=== PATIENT | male | born 1945 | race Two or more races ===

== ENCOUNTER 2017-10-26 08:39 | Outpatient (REF) | payer MEDICARE, BC ==
[2017-11-08 14:14] LABS: FATS NEUTRAL Normal (.); FATS TOTAL Normal (.); PANCREATIC ELASTASE STOOL 249 (>200)
== END 2017-10-31 ==
LOC: M SFHCCLAY 08:39
DX: K52.9 Noninfective gastroenteritis and colitis, unspecified (principal)
CPT/HCPCS: 82705

== ENCOUNTER → 2020-01-01 | Outpatient (CLI) | payer MEDICARE, BC ==
[~2020-01-01] MED LIST: CIPR500T89 PO; FLAG500T PO; INDA25TAB PO; LIPI10TA PO; MOME50SP; NORV2TAB PO; OXYC1TAB23 PO; PREV30CA6 PO; PRIN10TA PO; TYLE325T5 PO
== END ==
LOC: M LABSMTC 11:00
PROVIDERS: ATTEND Pediatrics
DX: Z20.828 Contact with and (suspected) exposure to other viral communicable diseases (principal)

== ENCOUNTER → 2020-09-24 | Outpatient (CLI) | payer MEDICARE, BC ==
--- NOTE | 2020-09-24 12:22 | REP ---
INDICATION: M25.551 RIGHT HIP PAIN. COMPARISON: None. TECHNIQUE: A single AP view of the pelvis was performed. FINDINGS: The hip joint spaces are symmetric and relatively well maintained. There is no acute fracture or destructive osseous lesion. There is an implanted stimulator device seen right. IMPRESSION: No acute abnormality. <Electronically signed by Bryan Argueta > 09/24/20 [id number]
--- NOTE | 2020-09-24 12:23 | REP ---
INDICATION: M25.551 RIGHT HIP PAIN. COMPARISON: None TECHNIQUE: AP frog-lateral views FINDINGS: The hip joint space is symmetric and relatively well maintained. There is no prominent marginal osteophytosis, buttressing, fracture, or dislocation. An implanted stimulator devices seen superimposed over the right hemipelvis IMPRESSION: No acute abnormality is noted. Findings as described above. <Electronically signed by Bryan Argueta > 09/24/20 [id number]
== END ==
LOC: M CLY 11:19
PROVIDERS: ATTEND Family Medicine
DX: M25.551 Pain in right hip (principal); I10 Essential (primary) hypertension
CPT/HCPCS: 72170; 73502; 80048; G0463

== ENCOUNTER → 2020-09-24 | Outpatient (REF) | payer MEDICARE, BC ==
[2020-09-24 16:14] LABS: BLOOD UREA NITROGEN 12 MG/DL (7-18); CALCIUM LEVEL 9.1 MG/DL (8.8-10.2); CARBON DIOXIDE LEVEL 31 MEQ/L (21-32); CHLORIDE LEVEL 107 MEQ/L (98-107); CREATININE FOR GFR 0.63 MG/DL (0.70-1.30); GLOMERULAR FILTRATION RATE > 60.0 (>42); GLUCOSE, FASTING 88 MG/DL (70-100); POTASSIUM SERUM 4.2 MEQ/L (3.5-5.1); SODIUM LEVEL 144 MEQ/L (136-145)
== END ==
LOC: M SFHCCLAY 11:10
PROVIDERS: ATTEND Family Medicine
DX: I10 Essential (primary) hypertension (principal)

== ENCOUNTER → 2021-09-30 | Outpatient (REF) | payer MEDICARE, BC | LOC: M SFHCCLAY 15:41 | PROVIDERS: ATTEND Family Medicine | DX: R97.20 Elevated prostate specific antigen [PSA] (principal) ==